=== PATIENT | female | born 1985 | race Caucasian/White ===

== ENCOUNTER 2024-03-03 21:50 | Emergency (ER) | payer BC, SELFPAY ==
[2024-03-03 21:52] VITALS: BP 114/83
--- NOTE | 2024-03-03 22:39 | ED.MUSCINJ ---
HPI-Injury
General
Chief Complaint: Musculo-Skeletal Complaint
Source: patient
Exam Limitations: none
Time Seen by Provider: 03/03/24 22:01
History of Present Illness-Injury
Initial Injury comments:
38-year-old [id number] female presents complaining of right wrist pain starting today. She is attempting a backhand spring and injured her wrist. No other complaints at this time
Phy Exam
Physical Exam
Physical Exam:
General: Well-appearing female no acute respiratory distress
Musculoskeletal exam: Right wrist swollen and tender over the distal radius and ulna. Swelling and deformity noted. Right elbow nontender.
Vascular: 2+ radial pulse right wrist
Neurologic: Good sensation right hand
Injury Course
Orders/Labs/Results
Orders:
Orders
03/03/24 22:16
HYDROmorphone [Dilaudid] 0.5 mg IV NOW STA
CR Wrist - Right Min 3 Views Urgent
Comment:
Reason For Exam: fall, deformity
03/03/24 23:27
CR Wrist - Right Min 3 Views Urgent
Comment:
Reason For Exam: post reduction
MDM/Problems Addressed
Differential Diagnosis Includes:
Right wrist pain with deformity. Consider fracture versus dislocation. X-rays right wrist pending.
*Critical Care Note
Total Time (30-74mins, 75-104mins- exclusive of procedures): Not Applicable
Update Note
Update Note:
X-rays were reviewed and demonstrate angulated comminuted and intra-articular fracture of the distal radius. Patient was given Dilaudid IV and subsequently a hematoma block with 1% lidocaine and 0.5% Marcaine. This provided adequate anesthesia.
The arm was placed in drying rack changer and weight was used to help provide reduction using longitudinal traction. Once adequate weight was placed the fracture was reduced with dorsal pressure. This was then wrapped with cast padding 2 inch OCL and Noe
bandages in a sugar-tong fashion. Postreduction films demonstrate significantly improved alignment of the comminuted distal radius fracture. Will apply sling and have her follow-up with orthopedics
ED Attending Note
-
Portions of this chart may have been created with voice recognition software.� Occasional wrong word or��sound alike� substitutions may have occurred due to the inherent limitations of voice recognition software.
Discharge Plan
Departure
Patient Disposition: Home (Routine Discharge)
Date of Disposition: 03/03/24
Time of Disposition: 23:50
Patient with high blood pressure during this ER visit?: No
Discharge Problem:
Distal radius fracture
Instructions: Muscle and Bone Pain (DC)
Prescriptions:
No Action
dextroamphetamine-amphetamine [Adderall] 10 mg Tablet
10 mg PO DAILYPRN PRN (Reason: adhd)
escitalopram oxalate [Lexapro] 10 mg Tablet
10 mg PO DAILY
Referrals:
Pennie Holder DO [Family Provider] -
Jhon Zepeda MD [Active] -
Activity Restrictions/Additional Instructions:
Keep splint on and dry. Elevate for swelling. Use ibuprofen or Tylenol for pain. Follow-up with orthopedics for further evaluation
Interventions
Interventions:
*Risk Screen - Suicide Last Done: 03/03/24 21:58
*General Assessment Last Done: 03/03/24 21:58
*Neglect/Abuse Screening Last Done: 03/03/24 21:58
*ED COVID-19 Vaccine History Last Done: 03/03/24 22:48
ED-Musculoskeletal Assessment Last Done: 03/03/24 23:01
Discharge Date and Time
Print Language: ROMANSH
[2024-03-03 22:48] VITALS: BMI 29.1
[2024-03-03] MEDS: DILAUDID 0.5 MG IV (22:55)
[2024-03-03 23:00] VITALS: BP 123/78
[2024-03-04] VITALS: BP 116/64
== END 2024-03-04 00:09 | disposition home or self-care (01) ==
LOC: EMR 21:50
PROVIDERS: EMERGENCY PHYSICIAN Emergency Medicine; FAMILY PHYSICIAN Family Medicine
DX: S52.571A Other intraarticular fracture of lower end of right radius, initial encounter for closed fracture (principal); X50.1XXA Overexertion from prolonged static or awkward postures, initial encounter
CPT/HCPCS: 99285; 25605; 96374; 73110